=== PATIENT | female | born 1955 | race Caucasian/White ===

== ENCOUNTER 2020-09-28 10:38 | Outpatient (CLI) | payer MEDICARE, OTHER ==
--- NOTE | 2020-09-29 14:39 | Mammography Report ---
BILATERAL DIGITAL SCREENING MAMMOGRAM 3D/2D: 09/28/2020 CLINICAL: Routine screening. Comparison is made to exams dated: 06/25/2017 mammogram - [facility] and 10/18/2015 mammogram - [facility]. The tissue of both breasts is heterogeneously dense. This may lower the sensitivity of mammography. No significant masses, calcifications, or other findings are seen in either breast. There has been no significant interval change. IMPRESSION: NEGATIVE There is no mammographic evidence of malignancy. A 1 year screening mammogram is recommended. This exam was interpreted at Station ID: [id number]. NOTE: For mammograms, a report in lay terms will be sent to the patient. Approximately 15% of breast malignancies will not be visualized mammographically. In the management of a palpable breast mass, a negative mammogram must not discourage biopsy of a clinically suspicious lesion. Electronically Signed By: Mainor Brambila M.D. ar/penrad:09/28/2020 11:31:39 ACR BI-RADS Category 1: Negative 3341F PARENCHYMAL PATTERN: (D) - The breast(s) demonstrate(s) heterogeneously dense fibroglandular raven donovan. BI-RADS CATEGORY: (1) - 1 RECOMMENDATION: (ANNUAL) - Recommend routine annual screening mammography. [id number] 1 year screening LATERALITY: (B)
== END 2020-09-28 10:39 | disposition home or self-care (01) ==
LOC: DI 10:38
PROVIDERS: ATTEND Nurse Practitioner Family
DX: Z12.31 Encounter for screening mammogram for malignant neoplasm of breast (principal)

== ENCOUNTER 2022-05-14 10:32 | Emergency (ER) | payer MEDICARE, OTHER ==
[2022-05-14 10:38] VITALS: BP 134/92
--- NOTE | 2022-05-14 11:04 | XRAY Report ---
PROCEDURE: Ribs w/PA Chest RT INDICATIONS: right rib pain from GLF. TECHNIQUE: 2 views of the right ribs were acquired, along with a single view chest. COMPARISON: None FINDINGS: Surgical changes and devices: None. Bones and chest wall: No fractures or dislocations. No suspicious bony lesions. Overlying soft tis sues appear unremarkable. Lungs and pleura: No pleural effusions or pneumothorax. Lungs appear clear. Mediastinum: Large hiatal hernia. Mediastinal contours otherwise appear normal. Heart size is normal . IMPRESSION: 1. Hiatal hernia. 2. No acute process. 3. No acute fracture. No osseous lesion. If symptoms and/or clinical suspicion for pathology continue , further assessment with repeat plain films, or advanced imaging (e.g., CT, MRI, or bone scan) is re commended for further assessment. Reviewed by: Christine Prado MD on 05/14/2022 11:02 AM PDT Approved by: Christine Prado MD on 05/14/2022 11:02 AM PDT Station ID: [id number]
[2022-05-14] MEDS ORDERED: HYDROcod/ACETAM 5/325 MG TABLET PO STA (11:13)
--- NOTE | 2022-05-14 11:13 | ED Physician Documentation ---
PD HPI MAJOR TRAUMA - Stated complaint Stated Complaint: FALL - Chief complaint Chief Complaint: Trauma Ch/Bk - History obtained from History obtained from: Patient - Additional information Additional information: She slipped and fell walking the dog yesterday afternoon landing on the leash with her right chest wall, an isolated injury. No head or neck injury. No loss of consciousness. She complains of persistent significant pain at the right lower ribs anterior axillary line. PD PAST MEDICAL HISTORY - Present Medications Home Medications: Ambulatory Orders Medication Instructions Recorded Confirmed HYDROcod/ACETAM 5/325 [[place] 5/325] 1 - 2 tab PO Q6H PRN #20 tablet 05/14/22 - Allergies Allergies/Adverse Reactions: Allergies Allergy/AdvReac Type Severity Reaction Status Date / Time No Known Drug Allergies Allergy Verified 05/14/22 10:38 PD ED PE NORMAL - Vitals Vital signs reviewed: Yes - General General: Alert and oriented X 3, No acute distress - Neck Neck: Supple, no meningeal sign, No bony TTP - Respiratory Respiratory: No respiratory distress, Other (Focal tenderness in the anterior x- ray line around rib 8 or so. Equal breath sounds. No right upper quadrant tenderness.) - Abdomen Abdomen: Non tender - Neuro Neuro: Alert and oriented X 3, Normal speech - Psych Psych: Normal mood, Normal affect Results - Vitals Vitals: Vital Signs - 24 hr 05/14/22 10:36 Temperature 36.5 C Heart Rate 62 Respiratory 16 Rate Blood Pressure 134/92 H O2 Saturation 100 Oxygen O2 Source Room air - Rads (name of study) PA chest x-ray with right ribs demonstrates no displaced fracture. She does have a hiatal hernia. Relevant Findings:: Final report received, EMP independent interpretation of test Departure - Departure Disposition: 01 Home, Self Care Clinical Impression: Contusion of chest wall Qualifiers: Encounter type: initial encounter Laterality: right Qualified Code(s): S20.211A - Contusion of right front wall of thorax, initial encounter Condition: Good Record reviewed to determine appropriate education?: Yes Instructions: ED Contusion Chest Wall Prescriptions: HYDROcod/ACETAM 5/325 [[place] 5/325] 1 - 2 tab PO Q6H PRN #20 tablet PRN Reason: Pain Comments: As discussed, there is no clear rib fracture on x-ray, but that does not rule out hairline fracture. I sent the prescription electronically to [facility] in [place]. You can also take omeprazole as discussed for ongoing hiatal hernia issues and you should talk with your doctor about the appropriateness of referral for upper endoscopy. If pain is mild you can take just Tylenol but recognize the hydrocodone also has Tylenol in it so do not take them together. Call your doctor to arrange a follow-up appointment, make the next available appointment. In the interim, return anytime if worse or if new symptoms deve lop. I am prescribing a short course of narcotic pain medication for you. These are potentially dangerous and addictive medications that should be used carefully. These medications may constipate you. Take an kdfr-svi-txjkgko stool softener (docusate) twice daily with plenty of water while taking these medications. If you go 24 hours without a bowel movement, take vzeo-yny-twiiwof miralax, per sc ernie instructions. Do not drink or drive while taking these medications. If you received narcotic or sedating medications while in the emergency department, do not drive for 24 hours. Store this medication in a safe, secure place and out of reach of children. It is a violation of federal law to give or sell this medication to another person or to use in a manner other than prescribed. The ED will not refill narcotic prescriptions, including prescriptions lost or stolen. To dispose of unwanted medications: 1. [facility] [address] [facility] in [place] has a medication drop box. They accept prescription medications (in pill form) Sunday through Sunday 9:00 a.m. to 5:00 p.m. 2. The [facility] [employer] accepts prescription medications (in pill form only) for disposal year round. Call for more information. 3. Contact the [facility] for the next [facility] sponsored prescription drug collection event. , [phone], or [phone]; Note that many narcotic pain relievers also contain Tylenol/acetaminophen. Please ensure that your total dose of acetaminophen from all sources does not exceed 3 g (3000 mg) per day.
== END 2022-05-14 11:19 | disposition home or self-care (01) ==
LOC: ED 10:32
DX: S20.211A Contusion of right front wall of thorax, initial encounter (principal); W19.XXXA Unspecified fall, initial encounter; Y93.K1 Activity, walking an animal
CPT/HCPCS: 71101; 99283; A9270

== ENCOUNTER 2022-09-01 13:18 | Outpatient (CLI) | payer MEDICARE, OTHER ==
--- NOTE | 2022-09-01 16:40 | XRAY Report ---
PROCEDURE: Knee 4 View LT INDICATIONS: LEFT KNEE PAIN TECHNIQUE: 4 views of the left knee(s) were acquired. COMPARISON: None. FINDINGS: Bones: No fractures or dislocations. No suspicious bony lesions. Moderate tricompartmental arthri tic change most severe medially. No erosions. Minimal periarticular osteophytes. Soft tissues: Minimal knee joint effusion. No suspicious soft tissue calcifications or masses. 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 Reviewed by: Amber Romero MD on 09/01/2022 4:39 PM PDT Approved by: Amber Romero MD on 09/01/2022 4:39 PM PDT Station ID: [id number]
== END 2022-09-01 23:59 | disposition home or self-care (01) ==
LOC: DI.S 13:18
PROVIDERS: ATTEND Physician Assistant
DX: M17.12 Unilateral primary osteoarthritis, left knee (principal)